=== PATIENT | male | born 1980 | race Caucasian/White ===

== ENCOUNTER 2016-05-03 16:20 | Emergency (ER) | payer OTHER ==
[~2016-05-03] VITALS: Ht 170.2 cm; Wt 81.8 kg
[2016-05-03 16:23] VITALS: TEMP 97.8
[2016-05-03] MEDS ORDERED: LOPRESSOR 550 MG/TAB PO (18:28)
[2016-05-03] MEDS ORDERED: PROAMATINE10 MG PO (18:28)
[2016-05-03 18:37] VITALS: BP 126/84; PULSE 90
== END 2016-05-03 18:48 | disposition home or self-care (01) ==
LOC: COL.ER 16:20
DX: R00.2 Palpitations (principal); T44.7X6A Underdosing of beta-adrenoreceptor antagonists, initial encounter; T44.4X6A Underdosing of predominantly alpha-adrenoreceptor agonists, initial encounter; Z91.138 Patient's unintentional underdosing of medication regimen for other reason; Z45.018 Encounter for adjustment and management of other part of cardiac pacemaker

== ENCOUNTER → 2016-08-15 | Outpatient (CLI) | payer OTHER ==
[~2016-08-15] MED LIST: LOPRESSOR 550 MG/TAB PO; PROAMATINE10 MG PO
== END ==
LOC: BHSO 15:30
DX: F41.1 Generalized anxiety disorder (principal)
CPT/HCPCS: 90791-AI

== ENCOUNTER → 2016-10-04 | Outpatient (CLI) | payer OTHER | LOC: BHSO 15:30 | DX: F41.1 Generalized anxiety disorder (principal) ==

== ENCOUNTER 2017-02-12 13:50 | Emergency (ER) | payer OTHER ==
[~2017-02-12] VITALS: Ht 170.2 cm; Wt 84.1 kg
[2017-02-12 13:54] VITALS: TEMP 98
[2017-02-12 14:22] LABS: BASO % 0.5 % (0.0-2.0); EOS # 0.3 (0.0-0.7); EOS % 4.7 % (0-4.0); GRAN # 3.3 (1.4-6.5); GRAN % 54.7 % (42.2-75.2); HEMATOCRIT 39.5 % (42.0-52.0); HEMOGLOBIN 13.8 g/dl (13.5-18.0); LYMPH # 1.7 (1.2-3.4); LYMPH % 28.5 % (20.0-51.0); MEAN CELL VOLUME 92 fl (80.0-100.0); MEAN CORPUSCULAR HEMOGLOBIN 32 pg (27.0-31.0); MEAN CORPUSCULAR HGB CONC 35 g/dl (33.0-37.0); MEAN PLATELET VOLUME 9.4 fl (7.4-10.4); MONO # 0.7 (0.1-0.6); MONO % 11.4 % (1.7-9.3); PLATELET COUNT 260 K/mm3 (130-400); RED BLOOD COUNT 4.31 M/mm3 (4.20-5.60)
[2017-02-12] MEDS ORDERED: EFFEXOR 75M75 MG/TAB PO (14:28)
[2017-02-12] MEDS ORDERED: PROTONIX 40MG T40 MG PO (14:29)
[2017-02-12] MEDS ORDERED: WELLBUTRIN XL150 MG PO (14:29)
[2017-02-12] MEDS ORDERED: SILENOR6 MG PO (14:30)
[2017-02-12] MEDS ORDERED: ZYRTEC 10MG10 MG PO (14:30)
[2017-02-12] MEDS ORDERED: BENADRYL50 MG PO (14:31)
[2017-02-12] MEDS ORDERED: SINGULAIR 110 MG/TAB PO (14:31)
[2017-02-12] MEDS ORDERED: MINIPRESS2 MG (14:31)
[2017-02-12] MEDS ORDERED: LAMICTAL 100MG100 MG PO (14:32)
[2017-02-12] MEDS ORDERED: MULTI VITAMINS1 TAB PO (14:33)
[2017-02-12] MEDS ORDERED: KRILL OIL 3001 EACH PO (14:33)
[2017-02-12] MEDS ORDERED: EPA FISH OIL1 SGL PO (14:34)
[2017-02-12 14:35] LABS: ADJUSTED CALCIUM 8.7 mg/dL (8.4-10.2); ALANINE AMINOTRANSFERASE 77 U/L (21-72); ALKALINE PHOSPHATASE 88 U/L (50-136); ANION GAP 13 mmol/L (7-16); BILIRUBIN,TOTAL 0.8 mg/dL (0.0-1.0); BLOOD UREA NITROGEN 12 mg/dL (9-20); CALCIUM 9.5 mg/dL (8.4-10.2); CARBON DIOXIDE 23 mmol/L (22-30); CHLORIDE 102 mmol/L (98-107); CREATININE, serum 0.98 mg/dL (0.66-1.25); GLUCOSE 101 mg/dL (74-106); LIPASE 103 U/L (23-300); POTASSIUM 4.3 mmol/L (3.4-5.0); SODIUM 137 mmol/L (137-145); TOTAL PROTEIN 8.4 gm/dL (6.4-8.2)
[2017-02-12] MEDS ORDERED: SYMAX DUOTAB0.375 MG PO (14:35)
[2017-02-12] MEDS ORDERED: ZANTAC 150MG T150 MG PO (14:36)
[2017-02-12] MEDS ORDERED: ALLEGRA 180MG180 MG PO (14:36)
[2017-02-12] MEDS ORDERED: COLESTID 1GM1 G PO (14:37)
[2017-02-12] MEDS ORDERED: LIPITOR20 MG PO (14:39)
[2017-02-12 14:44] LABS: C-REACTIVE PROTEIN < 0.5 mg/dL (0.0-0.9)
[2017-02-12 14:46] LABS: TROPONIN-I < 0.012 ng/mL (0.000-0.034)
[2017-02-12 15:50] LABS: COLLECTION METHOD CLEAN CATCH
[2017-02-12 16:22] LABS: PH 6 (5-8); SQUAMOUS EPITHELIAL None Seen /hpf; URINE APPEARANCE Clear; URINE BACTERIA None Seen /hpf; URINE BILIRUBIN Negative (NEGATIVE); URINE BLOOD Negative (NEGATIVE); URINE COLOR Yellow; URINE GLUCOSE Negative (NEGATIVE); URINE KETONE Negative (NEGATIVE); URINE LEUKOCYTE ESTERASE Negative (NEGATIVE); URINE PROTEIN(semi-quant) Negative (NEGATIVE); URINE RBC 0-2 /hpf; URINE UROBILINOGEN Negative (NEGATIVE); URINE WBC 0-2 /hpf
[2017-02-12] MEDS ORDERED: NORCO 325 MG-7.1 TAB PO (17:10)
[2017-02-12] MEDS ORDERED: ZOFRAN ODT4 MG PO (17:21)
[2017-02-12 17:30] VITALS: BP 140/104; PULSE 82
== END 2017-02-12 17:25 | disposition home or self-care (01) ==
LOC: COL.ER 13:50
PROVIDERS: Nurse Practitioner
DX: R10.11 Right upper quadrant pain (principal); Z95.0 Presence of cardiac pacemaker; Z86.79 Personal history of other diseases of the circulatory system; Z90.49 Acquired absence of other specified parts of digestive tract; Z90.89 Acquired absence of other organs
CPT/HCPCS: J1170; J2405; J7030